=== PATIENT | male | born 2000 | race Caucasian/White ===

== ENCOUNTER 2022-07-03 15:46 | Emergency (ER) | payer OTHER ==
[~2022-07-03] VITALS: Ht 177.8 cm; Wt 91.2 kg
[2022-07-03 16:22] VITALS: BP 131/93
--- NOTE | 2022-07-03 16:29 | NUR ---
Pt w/c assisted to lobby.
[2022-07-03] MEDS ORDERED: KETOROLAC 30 MG/ML VIAL IM ONE (17:55)
[2022-07-03] MEDS ORDERED: ceFAZolin 1,000 MG VIAL IM ONE (22:25)
--- NOTE | 2022-07-03 23:03 | NUR ---
Patient does not wish to proceed with medical care recommended by DR. DAVEY. Patient given information related to possible complications, up to and including , which could occur as a result of leaving hospital at this time. Patient verbalizes understanding of risks involved leaving against medical advice. Patient has signed AMA form.
[2022-07-04] MEDS ORDERED: VANCOMYCIN 1GM/DEXT 5% PREMIX 200 ML IV SCH (09:00)
[2022-07-04] MEDS ORDERED: CEFEPIME 1,000 MG in DEXTROSE 5% 50 ML IV SCH (09:00)
== END 2022-07-03 22:41 | disposition home or self-care (01) ==
LOC: MED 15:46 → MMU 22:41 → UNDOADMIN 22:41 → UNDODISIN 23:03
DX: S90.851A Superficial foreign body, right foot, initial encounter (principal); W22.8XXA Striking against or struck by other objects, initial encounter; Y93.89 Activity, other specified; Y92.89 Other specified places as the place of occurrence of the external cause; Y99.0 Civilian activity done for income or pay
CPT/HCPCS: 73630; 90471; 90715; 96372; 99284; J1885; J3370